=== PATIENT | female | born 1945 | race Caucasian/White ===

== ENCOUNTER 2017-12-31 14:38 | Emergency (ER) | payer OTHER ==
[~2017-12-31] VITALS: Ht 160 cm; Wt 77.1 kg
[~2017-12-31 14:38] MED LIST: ASPIRIN EC81 M1 PO; KEFLEX500 MG PO; LISINOPRIL30 M1 PO; SIMVASTATIN20 M2 PO; TRIAMCINOL0.1 %/453 TOP
--- NOTE | 2017-12-31 15:19 | ED GI/GU/ABDOMINAL COMPLAINT ---
History of Present Illness General Chief Complaint: Low Back Pain/Injury Stated Complaint: LOWER BACK ON R SIDE PAIN Source: patient Exam Limitations: no limitations Vital Signs & Intake/Output Vital Signs & Intake/Output Vital Signs Date Time Temp Pulse Resp B/P B/P Pulse O2 O2 Flow FiO2 Mean Ox Delivery Rate 12/31 1817 98.2 80 16 164/82 97 Room Air 12/31 1442 96.7 74 18 172/82 96 Room Air Allergies Coded Allergies: NO KNOWN ALLERGIES (05/03/17) Reconcile Medications Aspirin (Ecotrin*) 81 MG TABLET.DR 1 TAB PO DAILY HEART HEALTH (Reported) Lisinopril 30 MG TABLET 1 TAB PO DAILY HTN (Reported) Methocarbamol (Robaxin-750) 750 MG TABLET 1 TAB PO TID PAIN Methylprednisolone. (Medrol) 4 MG TAB.DS.PK 1 DP PO AD BACK PAIN 6 on day 1 then reduce by one tablet daily until gone Simvastatin (Simvastatin*) 20 MG TABLET 1 TAB PO QPM CHOLESTEROL (Reported) Triage Note: PT TO ER C/C RIGHT FLANK/LOW BACK PAIN X 1 DAY. C/O "SPASMS". DENIES N/V/D. DENIES URINARY S/S Triage Nurses Notes Reviewed? yes LMP (ages 10-50): post menopausal ? N Is pt currently ? No Onset: Abrupt Duration: day(s): (1-2), changing over time, continues in ED Timing: remote history Quality/Severity: cramping, SPASMS Severity Numbers: 8 Location: right flank, right lower quadrant Radiation: no radiation Activities at Onset: none Prior Abdominal Problems: similar symptoms Past Sexual History: Unobtainable at this time No Modifying Factors: none Modifying Factors: Worsens With: movement, palpation. HPI: 72-year-old female past medical history of hypertension, hyperlipidemia, presents for evaluation of right flank pain. Patient states that she first noticed the symptoms yesterday while she was at rest. The pain is located in the right flank described as sharp spasming. She states that the pain is intermittently worse. Does seem to come on with movement and certain positioning. The pain will radiate into the right and left groins and bilateral pelvis. No other associated symptoms. She states that when the pain does come on it is very severe. It never goes away completely but does get better. She reports that she had similar symptoms many years ago when she was diagnosed with a kidney stone. No hematuria frequency urgency dysuria fever nausea vomiting chest pain shortness of breath. She took Advil with some improvement. She does report that she had surgery for breast cancer about 6 months ago. (Elver aBrber) Past History Travel History Traveled to [place] past 21 day No Medical History Any Pertinent Medical History? see below for history Cardiovascular: hypertension, hyperlipidemia Cancer(s): breast cancer Surgical History Surgical History: R KNEE CAP REPL L PART KNEE REPLACEMENT Psychosocial History What is your primary language [place] Tobacco Use: Quit >30 days ago Family History Hx Contributory? No (Elver Barber) Review of Systems Review of Systems Constitutional: Reports: no symptoms. EENTM: Reports: no symptoms. Respiratory: Reports: no symptoms. Cardiovascular: Reports: no symptoms. GI: Reports: see HPI, abdominal pain. Genitourinary: Reports: no symptoms. Musculoskeletal: Reports: see HPI, back pain, muscle pain, muscle stiffness. Skin: Reports: no symptoms. Neurological/Psychological: Reports: no symptoms. Hematologic/Endocrine: Reports: no symptoms. Immunologic/Allergic: Reports: no symptoms. All Other Systems: Reviewed and Negative (Elver Barber) Physical Exam Physical Exam General Appearance: well developed/nourished, no apparent distress, alert, awake Head: atraumatic, normal appearance Eyes: Bilateral: normal appearance, PERRL, EOMI, normal inspection. Ears, Nose, Throat, Mouth: hearing grossly normal, moist mucous membrane Neck: normal inspection, supple, full range of motion Respiratory: normal breath sounds, chest non-tender, no respiratory distress, lungs clear Cardiovascular: regular rate/rhythm, normal peripheral pulses Peripheral Pulses: 2+ radial (R), 2+ radial (L) Gastrointestinal: normal bowel sounds, soft, no organomegaly, tenderness (RT FLANK, RT LOWER BACK ) Back: normal inspection, normal range of motion, no vertebral tenderness, RIGHT- SIDED LUMBAR PARASPINAL MUSCLES TENDER TO PALPATION NO BRUISING SWELLING OR ABRASIONS Extremities: normal range of motion Neurologic/Psych: no motor/sensory deficits, awake, alert, oriented x 3, normal gait Skin: intact, normal color, warm/dry Core Measures ACS in differential dx? No Sepsis Present: No Sepsis Focused Exam Completed? No (Elver Barber) Progress Differential Diagnosis: AAA, appendicitis, biliary colic, bowel obstruction, cholecystitis, diverticulitis, gastritis, hepatitis, ischemic bowel, inflamm bowel dis, intrauterine , kidney stone, pancreatitis, SBO, UTI/pyelo Plan of Care: Orders Procedure Date/time Status TROPONIN LEVEL 12/31 151 Complete LIPASE 12/31 1518 Complete COMPREHENSIVE METABOLIC PANEL 12/31 1518 Complete CBC WITHOUT DIFFERENTIAL 12/31 151 Complete URINALYSIS 12/31 1451 Complete Laboratory Tests 12/31/17 1526: Anion Gap 10, Estimated GFR > 60, BUN/Creatinine Ratio 30.0 H, Glucose 107 H, Calcium 10.0, Total Bilirubin 0.3, AST 24, ALT 39, Alkaline Phosphatase 58, Troponin I < 0.01, Total Protein 7.0, Albumin 3.9, Globulin 3.1, Albumin/ Globulin Ratio 1.3, Lipase 87, CBC w Diff NO MAN DIFF REQ, RBC 4.13 L, MCV 85.3 , MCH 28.5, MCHC 33.5, RDW 14.0, MPV 8.2, Gran % 61.4, Lymphocytes % 29.8, Monocytes % 8.0, Eosinophils % 0.2, Basophils % 0.6, Absolute Granulocytes 3.4, Absolute Lymphocytes 1.7, Absolute Monocytes 0.4, Absolute Eosinophils 0, Absolute Basophils 0 12/31/17 1453: Urinalysis LIGHT H, Urine Color STRAW, Urine Clarity CLEAR, Urine pH 6.0, Ur Specific Emblem <= 1.005, Urine Protein NEG, Urine Ketones NEG, Urine Nitrite NEG, Urine Bilirubin NEG, Urine Urobilinogen 0.2, Ur Leukocyte Esterase NEG, Ur Microscopic SEDIMENT EXAMINED, Urine RBC RARE, Ur Epithelial Cells RARE, Urine Mucus RARE, Urine Hemoglobin TRACE-INTACT, Urine Glucose NEG Patient seen and evaluated. SHe is here with right flank pain and right lower back pain. She does have a remote history kidney stones feel like this is similar. The pain seems to be reproducible with range of motion and palpation. Vital signs are stable she appears clinically well. Urinalysis is negative. Labs CT scan ordered. A CT scan with and without contrast will be obtained to evaluate for both kidney stones pyelonephritis malignancy appendicitis and AAA. Patient MEDICATED with IV Tylenol. Blood work does not show any acute findings urine is clean. CT scan is also unchanged. Patient is feeling better after Tylenol. She was ablated in the emergency department has a steady gait. Patient be treated for muscular skeletal back pain. Advised to continue Tylenol as needed Medrol Dosepak for the full course Robaxin as needed. Follow-up with primary care doctor and orthopedics. Advised patient if her pain does not improve she may need further evaluation with advanced imaging. Case discussed with Dr. Alexander he agrees discussed return precautions patient agrees Diagnostic Imaging: Viewed by Me: CT Scan. Discussed w/RAD: CT Scan. Radiology Impression: PATIENT: NOLAN CHERY PRESENT AGE: 72 PATIENT ACCOUNT NO: [id number] : 46 LOCATION: [facility] ORDERING PHYSICIAN: Elver GRIFFITH SERVICE DATE: 12/31/17 EXAM TYPE: CAT - CT ABD & PELVIS W/O IV CONTRAS EXAMINATION: CT ABDOMEN AND PELVIS WITHOUT CONTRAST CLINICAL INFORMATION: 72-year-old female presented with right lower back pain radiating to the right groin. COMPARISON: CT of the abdomen and pelvis done on 09/17/2016, 07/07/2016 and 03/06/2015. TECHNIQUE: Multidetector volumetric imaging was performed from the superior aspect of the liver through the pubic symphysis. Sagittal and coronal reformatted images were obtained on the technologist's workstation. DLP: 475.23 mGy-cm FINDINGS: LUNG BASES: The visualized lung bases are unremarkable. LIVER, GALLBLADDER, AND BILIARY TREE: Sub-5 mm subcapsular hepatic hypodensity is noted along the anterior superior aspect of segment 4a of the left lobe of the liver, unchanged since 07/07/2016, consistent with benign pathology, likely cyst. The remainder of the liver on this nonenhanced study appears unremarkable The gallbladder is unremarkable with no evidence of radiopaque gallstones, gallbladder wall thickening, or obvious pericholecystic inflammatory changes. PANCREAS: Unremarkable. SPLEEN: Previously documented well-circumscribed splenic hypodense lesion along the superior medial aspect of the subcapsular aspect of the spleen measuring approximately 1.2 cm at its maximum dimension is reidentified with mean Hounsfield value of 15, unchanged since multiple prior studies, consistent with likely incidental cyst. ADRENAL GLANDS: Unremarkable. KIDNEYS AND URETERS: The kidneys are normal in size, shape, and attenuation. No hydronephrosis or hydroureter seen. No perinephric stranding. There is a stable 0.4 cm nonobstructing calculus identified at the inferior calyx anteriorly. Specifically, there is no evidence of any urinary tract calculi and/or obstruction or inflammatory changes identified within the right kidney. Both ureters are decompressed, unchanged. BLADDER: Unremarkable. GASTROINTESTINAL TRACT: Colonic diverticulosis-related changes are present within the sigmoid and descending colon without any CT features of superimposed acute diverticulitis. There is no bowel obstruction present. The bowel loops are decompressed. The small-bowel loops are decompressed. Small sliding hiatal hernia is noted. The appendix is visualized at right lower quadrant of the abdomen and is normal. ABDOMINAL WALL: No significant hernia is appreciated. LYMPH NODES: No pathologically enlarged retroperitoneal, mesenteric, pelvic, inguinal or groin lymphadenopathy present. VASCULAR: Mild atherosclerotic disease is noted within the aorta and its branches without aneurysm formation. PELVIC VISCERA: There is no pelvic mass present. Specifically, there is no uterine or adnexal mass present. There is no free fluid and/or free air present. OSSEOUS STRUCTURES: Mild degenerative spondylosis-related changes are noted at L1-L2, L2-L3 and L5-S1. Mild facet joint arthritic changes are noted at lower lumbar spine. Calcified granuloma is noted within the right gluteal region. No significant change. IMPRESSION: No acute intra-abdominal and/or intrapelvic pathology, essentially appears unchanged since most recent prior study dated 09/17/2016. DICTATED BY: Gillian Medeiros MD DATE/TIME DICTATED:12/31/171649 BUILDING CONSTRUCTION SUPERVISOR:MILVIA DATE/ TIME TRANSCRIBED:12/31/171649 CONFIDENTIAL, DO NOT COPY WITHOUT APPROPRIATE AUTHORIZATION. <Electronically signed in Other Vendor System> SIGNED BY: Gillian Medeiros MD 12/31/17 1721 Initial ED EKG: none (Martin GRIFFITH,Elver) Departure Departure Disposition: HOME OR SELF CARE Condition: Stable Clinical Impression Primary Impression: Low back pain Qualifiers: Chronicity: acute Back pain laterality: right Sciatica presence: without sciatica Qualified Code: M54.5 - Low back pain Referrals: Reba KAHN,Chelsea Lora APRN (PCP/Family) Additional Instructions: Rest, avoid heavy lifting bending or excessive physical activity. Continue Tylenol 1001 g every 6-8 hours as needed for pain. Take Medrol Dosepak as directed for the full course. Robaxin is a muscle relaxer that can be used every 8 hours as needed for pain this may cause drowsiness. Make a follow-up with Dr. Britton orthopedic surgeon and your primary care doctor to review all results of today's visit. Return to the emergency department with any concerns. If YOUr pain persists YOU may need further evaluation. Departure Forms: Customer Survey General Discharge Information Prescriptions: Current Visit Scripts Methylprednisolone. (Medrol) 1 DP PO AD #1 DP 6 on day 1 then reduce by one tablet daily until gone Methocarbamol (Robaxin-750) 1 TAB PO TID #30 TAB (Elver Barber) PA/HATCHERY MANAGER Co-Sign Statement Statement: ED Attending supervision documentation- [x] I saw and evaluated the patient. I have also reviewed all the pertinent lab results and diagnostic results. I agree with the findings and the plan of care as documented in the PA's/HATCHERY MANAGER's documentation. [] I have reviewed the ED Record and agree with the PA's/HATCHERY MANAGER's documentation. [] Additions or exceptions (if any) to the PAs/HATCHERY MANAGER's note and plan are summarized below: [] (Varinder Alexander DO
[2017-12-31 15:52] LABS: ABSOLUTE BASOPHIL COUNT 0 /CUMM (0.0-0.2); ABSOLUTE EOSINOPHIL COUNT 0 /CUMM (0.0-0.7); ABSOLUTE GRANULOCYTE CT 3.4 /CUMM (1.4-6.5); ABSOLUTE LYMPH COUNT 1.7 /CUMM (1.2-3.4); ABSOLUTE MONOCYTE COUNT 0.4 /CUMM (0.10-0.60); BASOPHIL % 0.6 % (0.0-2.0); EOSINOPHIL % 0.2 % (0-5); GRANULOCYTE % 61.4 % (42.2-75.2); HEMATOCRIT 35.2 % (37-47); MEAN CORPUSCULAR HGB 28.5 PG (27.0-31.0); MEAN CORPUSCULAR HGB CONC 33.5 G/DL (33.0-37.0); MEAN CORPUSCULAR VOLUME 85.3 FL (81.0-99.0); MEAN PLATELET VOLUME 8.2 FL (7.4-10.4); PLATELET COUNT 276 /CUMM (130-400); RED BLOOD CELL CT 4.13 /CUMM (4.20-5.40); WHITE BLOOD CELL COUNT 5.6 /CUMM (4.8-10.8)
--- NOTE | 2017-12-31 17:21 | CT SCAN REPORT ---
EXAMINATION: CT ABDOMEN AND PELVIS WITHOUT CONTRAST CLINICAL INFORMATION: 72-year-old female presented with right lower back pain radiating to the right groin. COMPARISON: CT of the abdomen and pelvis done on 09/17/2016, 07/07/2016 and 03/06/2015. TECHNIQUE: Multidetector volumetric imaging was performed from the superior aspect of the liver through the pubic symphysis. Sagittal and coronal reformatted images were obtained on the technologist's workstation. DLP: 475.23 mGy-cm FINDINGS: LUNG BASES: The visualized lung bases are unremarkable. LIVER, GALLBLADDER, AND BILIARY TREE: Sub-5 mm subcapsular hepatic hypodensity is noted along the anterior superior aspect of segment 4a of the left lobe of the liver, unchanged since 07/07/2016, consistent with benign pathology, likely cyst. The remainder of the liver on this nonenhanced study appears unremarkable The gallbladder is unremarkable with no evidence of radiopaque gallstones, gallbladder wall thickening, or obvious pericholecystic inflammatory changes. PANCREAS: Unremarkable. SPLEEN: Previously documented well-circumscribed splenic hypodense lesion along the superior medial aspect of the subcapsular aspect of the spleen measuring approximately 1.2 cm at its maximum dimension is reidentified with mean Hounsfield value of 15, unchanged since multiple prior studies, consistent with likely incidental cyst. ADRENAL GLANDS: Unremarkable. KIDNEYS AND URETERS: The kidneys are normal in size, shape, and attenuation. No hydronephrosis or hydroureter seen. No perinephric stranding. There is a stable 0.4 cm nonobstructing calculus identified at the inferior calyx anteriorly. Specifically, there is no evidence of any urinary tract calculi and/or obstruction or inflammatory changes identified within the right kidney. Both ureters are decompressed, unchanged. BLADDER: Unremarkable. GASTROINTESTINAL TRACT: Colonic diverticulosis-related changes are present within the sigmoid and descending colon without any CT features of superimposed acute diverticulitis. There is no bowel obstruction present. The bowel loops are decompressed. The small-bowel loops are decompressed. Small sliding hiatal hernia is noted. The appendix is visualized at right lower quadrant of the abdomen and is normal. ABDOMINAL WALL: No significant hernia is appreciated. LYMPH NODES: No pathologically enlarged retroperitoneal, mesenteric, pelvic, inguinal or groin lymphadenopathy present. VASCULAR: Mild atherosclerotic disease is noted within the aorta and its branches without aneurysm formation. PELVIC VISCERA: There is no pelvic mass present. Specifically, there is no uterine or adnexal mass present. There is no free fluid and/or free air present. OSSEOUS STRUCTURES: Mild degenerative spondylosis-related changes are noted at L1-L2, L2-L3 and L5-S1. Mild facet joint arthritic changes are noted at lower lumbar spine. Calcified granuloma is noted within the right gluteal region. No significant change. IMPRESSION: No acute intra-abdominal and/or intrapelvic pathology, essentially appears unchanged since most recent prior study dated 09/17/2016.
[2017-12-31] MEDS ORDERED: ROBAXIN-750750 M1 PO (17:47)
[2017-12-31] MEDS ORDERED: MEDROL4 M2 PO (17:47)
[2017-12-31 18:17] VITALS: BP 164/82
== END 2017-12-31 18:17 ==
LOC: ERH 14:38
PROVIDERS: Physician Assistant Medical
DX: M54.5 Low back pain (principal)
CPT/HCPCS: 74176; 81001; 96374; J0131

== ENCOUNTER → 2018-04-24 | Day surgery (SDC) | payer OTHER ==
[~2018-04-24] VITALS: Ht 160 cm; Wt 79.8 kg
[~2018-04-24] MED LIST changes: +MEDROL4 M2 PO; +ROBAXIN-750750 M1 PO
--- NOTE | 2018-04-24 08:54 | Operative Report ---
Operative/Inv Procedure Report Surgery Date: 04/24/18 Name of Procedure: left ESWL Pre-Operative Diagnosis: left kidney stone Post-Operative Diagnosis: same Estimated Blood Loss: scant Surgeon/Marketing Rotation Associate: Esperanza Hopper MD Anesthesia: local monitored anesthesi Complications: none Condition: stable Operative Indication: left renal stone Operative/Procedure Note Note: 72yo female with microhematuria hx found to have a left kidney stone during workup. She is interested in treatment for it. She is interested in ESWL after discussing the options of ESWL vs URS with laser lithotripsy. All the risks, benefits and alternatives were given and all questions answered. Consent was signed and the patient's left hand marked. Patient was brought to the operating room and placed on the table in the supine position. Time out was performed. ESWL was started after IV sedation was given adequately and the 4mm stone was located in the midpole. The shockwaves were started at a power of 10 for 100 shocks, then power of 11 for 100 shocks, then power of 12 for 100 shocks, then power of 13 for 100 shocks and finally power of 20 for 2100 shocks. Patient tolerated the procedure well. THe stone was visibly changed at the end of the procedure. Patient was transferred to [facility] in stable condition. Findings: 4mm stone visibly changed after ESWL tx Discharge Disposition: Same Day Admissions
== END ==
LOC: STS 02:11
DX: N20.0 Calculus of kidney (principal); R35.0 Frequency of micturition; R31.21 Asymptomatic microscopic hematuria; N39.41 Urge incontinence; R35.1 Nocturia; N81.10 Cystocele, unspecified; F17.200 Nicotine dependence, unspecified, uncomplicated; I10 Essential (primary) hypertension
CPT/HCPCS: J0690; J2250